=== PATIENT | female | born 1950 | race Caucasian/White ===

== ENCOUNTER → 2017-11-20 14:37 | Outpatient (CLI) | payer MEDICARE, OTHER, SELFPAY ==
--- NOTE | 2017-11-20 14:40 | HPBI_ITS ---
MAMMOGRAPHY - BILATERAL SCREENING REASON FOR EXAM: Female, 67 years old. Routine annual screening examination. PERTINENT HISTORY: Mother with breast cancer. TECHNIQUE: Digital bilateral breast radha (3D mammographic acquisition) in the CC and MLO projections. 2-D mediolateral oblique (MLO) and craniocaudad (CC) views of both breasts were obtained. CAD: Full Field Digital Mammography with Computer Added Detection was performed. COMPARISON: Comparison is made with prior study dated September 30, 2016 and August 13, 2015. FINDINGS: Breast Composition: The breasts are extremely dense, which lowers the sensitivity of mammography. There are no dominant masses or suspicious calcifications. No other significant abnormalities are identified. There has been no significant change since the prior study. HPBI/SCREENING MAMM (CAD), BILAT IMPRESSION: Stable bilateral screening mammogram. Yearly follow-up mammogram recommended. (A) ASSESSMENT CATEGORY: BIRADS Category 1: Negative. A letter regarding these results will be sent to the patient by the facility within 30 days. Approximately 10% of breast cancers are not detected by mammography. A normal mammogram should not delay biopsy of a clinically suspicious abnormality. [id number] Electronically Signed: Aamir Klein MD at 16:06 EST Tel [phone], Service support ,
== END ==
PROVIDERS: Family Provider Family Medicine; PCP Family Medicine; Visit Provider Family Medicine
DX: Z12.31 Encounter for screening mammogram for malignant neoplasm of breast (principal)
CPT/HCPCS: 77063; 77067

== ENCOUNTER → 2018-12-18 15:16 | Outpatient (CLI) | payer MEDICARE, OTHER, SELFPAY ==
[2018-10-31 16:58] VITALS: BMI 25.0
--- NOTE | 2018-12-18 15:21 | BI_ITS ---
MAMMOGRAPHY - BILATERAL SCREENING REASON FOR EXAM: Female, 68 years old. Routine annual screening examination. PERTINENT HISTORY: Mother with breast cancer. TECHNIQUE: Digital bilateral breast radha (3D mammographic acquisition) in the CC and MLO projections. 2-D mediolateral oblique (MLO) and craniocaudad (CC) views of both breasts were obtained. CAD: Full Field Digital Mammography with Computer Added Detection was performed. COMPARISON: Comparison is made with prior study dated November 20, 2017 and September 30, 2016. FINDINGS: Breast Composition: The breasts are extremely dense, which lowers the sensitivity of mammography. There are no dominant masses or suspicious calcifications. Stable small bilateral axillary lymph nodes. No other significant abnormalities are identified. There has been no significant change since the prior study. BI/SCREENING MAMM (CAD), BILAT IMPRESSION: Stable bilateral screening mammogram. Yearly follow-up mammogram recommended. (A) ASSESSMENT CATEGORY: BIRADS Category 2: Benign. A letter regarding these results will be sent to the patient by the facility within 30 days. Approximately 10% of breast cancers are not detected by mammography. A normal mammogram should not delay biopsy of a clinically suspicious abnormality. [id number] Electronically Signed: Aamir Klein, at 9:37 EST , Service support ,
== END ==
PROVIDERS: Family Provider Family Medicine; PCP Family Medicine; Visit Provider Family Medicine
DX: Z12.31 Encounter for screening mammogram for malignant neoplasm of breast (principal); Z80.3 Family history of malignant neoplasm of breast
CPT/HCPCS: 77063; 77067

== ENCOUNTER 2019-03-20 10:00 | Outpatient (RCR) | payer SELFPAY ==
--- NOTE | 2019-04-11 08:53 | HP.PT.NRP ---
HP - Discharge Summary (1) - Patient Information OSBALDO VAIL was seen in my office for initial evaluation on . The following Plan of Care was established for this patient: This patient was last seen in our office 03/20/19. Pertinent comments regarding their Physical therapy will appear below: Pt. was seen for her UT, neck, scapular painw ith DN. Pt. progressed very well and is only having minimal symptoms now. Pt. was to follow up with PT if needed. Pt. has not been seen in ~ 1 month and will be DC from PT at this point intime. At this point I will be discontinuing this patient from physical therapy. I would be happy to see this patient again in the future if found appropriate by the physician. Thank you! DOUGLAS MarquesT
== END 2019-03-20 19:00 | disposition home or self-care (01) ==
LOC: PT 10:00
PROVIDERS: Family Provider Family Medicine; PCP Family Medicine
DX: R69 Illness, unspecified (principal)

== ENCOUNTER → 2019-12-12 08:11 | Outpatient (CLI) | payer MEDICARE, OTHER, SELFPAY ==
[2018-10-31 16:58] VITALS: BMI 25.0
[2019-12-12 10:10] LABS: Vitamin D,25 Hydroxy 23.7 ng/mL
[2019-12-12 10:22] LABS: Anion Gap 4 (5-15); BUN 15 mg/dL (7-18); BUN/Creat Ratio 17.7 RATIO (10-20); Calcium,Total 8.9 mg/dL (8.5-10.1); Chloride 108 mmol/L (98-107); Cholesterol 211 mg/dL (200); Creatinine, Serum 0.85 mg/dL (0.55-1.02); EST Glomerular Filtration Rate 71 mL/min (>60); Est Glom Filt Rate - Afr Amer 86 mL/min (>60); Glucose 89 mg/dL (74-106); High Density Lipoprotein 68 mg/dL; Potassium 4.3 mmol/L (3.5-5.1); Sodium Level 140 mmol/L (136-145); Thyroid Stim Hormone (TSH) 1.82 uIU/mL (0.358-3.74); Triglycerides 102 mg/dL; Very Low Density Lipoprotein 20 mg/dL (5-40)
== END ==
PROVIDERS: PCP Family Medicine; Referring Provider Family Medicine; Visit Provider Family Medicine
DX: I10 Essential (primary) hypertension (principal); Z13.21 Encounter for screening for nutritional disorder
CPT/HCPCS: 36415; 80048; 80061; 82306; 84443

== ENCOUNTER 2019-12-27 16:30 | Outpatient (RCR) | payer SELFPAY ==
[2018-10-31 16:58] VITALS: BMI 25.0
== END 2019-12-27 17:00 | disposition home or self-care (01) ==
LOC: PT 16:30
PROVIDERS: Family Provider Family Medicine; PCP Family Medicine
DX: R69 Illness, unspecified (principal)

== ENCOUNTER → 2019-12-30 11:40 | Outpatient (CLI) | payer MEDICARE, OTHER, SELFPAY ==
[2018-10-31 16:58] VITALS: BMI 25.0
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
== END ==
PROVIDERS: PCP Family Medicine; Referring Provider Family Medicine; Visit Provider Family Medicine
DX: R22.41 Localized swelling, mass and lump, right lower limb (principal)
CPT/HCPCS: 76882

== ENCOUNTER → 2019-12-31 10:26 | Outpatient (CLI) | payer MEDICARE, OTHER, SELFPAY ==
[2018-10-31 16:58] VITALS: BMI 25.0
--- NOTE | 2019-12-31 10:31 | BI_ITS ---
MAMMOGRAPHY - BILATERAL SCREENING REASON FOR EXAM: Female, 69 years old. Routine annual screening examination. PERTINENT HISTORY: Mother with breast cancer. TECHNIQUE: Digital bilateral breast ej (3D mammographic acquisition) in the CC and MLO projections. 2-D mediolateral oblique (MLO) and craniocaudad (CC) views of both breasts were obtained. CAD: Full Field Digital Mammography with Computer Added Detection was performed. COMPARISON: Comparison is made with prior examination dated December 18, 2018 and November 20, 2017. FINDINGS: Breast Composition: The breasts are extremely dense, which lowers the sensitivity of mammography. There are no dominant masses or suspicious calcifications. Stable benign-appearing bilateral axillary lymph nodes. No other significant abnormalities are identified. There has been no significant change since the prior study. BI/SCREEN MAMM (CAD) W/EJ BILAT IMPRESSION: Stable bilateral screening mammogram. Yearly follow-up mammogram recommended. (A) ASSESSMENT CATEGORY: BIRADS Category 2: Benign. A letter regarding these results will be sent to the patient by the facility within 30 days. Approximately 10% of breast cancers are not detected by mammography. A normal mammogram should not delay biopsy of a clinically suspicious abnormality. [id number] Electronically Signed: Aamir Klein, at 14:18 EDT , Service support ,
--- NOTE | 2019-12-31 10:32 | BD_ITS ---
STUDY: DUAL ENERGY X-RAY ABSORPTIOMETRY / DXA REASON FOR EXAM: Female, 69 years old. SURGICAL RESIDENT -- TAKES CALCIUM, MULTIVITAMIN AND VITAMIN D -- DOES HIGH AMOUNT OF EXERCISE -- NO [place] TECHNIQUE: Bone Mineral Density (BMD) measurements of lumbar spine and bilateral hips were obtained. COMPARISON: Comparison is made with prior study dated December 10, 2019. FINDINGS: Lumbar Spine (L1-L4): g/cm2 (1.397) / T-score (1.6) / Z-score (3.3) Findings are suggestive of normal bone density with a low fracture risk. Left Femur Total: g/cm2 (0.787) / T-score (-1.8) / Z-score (-0.4) Left Femoral Neck: g/cm2 (0.755) / T-score (-2.0) / Z-score (-0.4) Right Femur Total: g/cm2 (0.802) / T-score (-1.6) / Z-score (-0.2) Right Femoral Neck: g/cm2 (0.750) / T-score (-2.1) / Z-score (-0.4) The T-Scores on the most recent prior examination were: Lumbar Spine (L1-L4): There has been worsening of bone density since the previous examination. Left Femur Total: which represents a worsening of 5%. Right Femur Total: which represents a worsening of 6.3%. BD/Dexa Bone Density Study IMPRESSION: The patient is considered osteopenic as outlined below according to World [place] Organization (WHO) criteria with a moderate fracture risk. There has been worsening of bone density since the previous examination. Reference Information: The T-score is the number of standard deviations above or below the standard which is normal for young adults at their peak bone mineral density. The World Health Organization (WHO) interprets the T-scores as follows: Above -1 Normal bone density Between -1 and -2.5 Osteopenia Equal to / or below -2.5 Osteoporosis As a practical clinical guideline, osteopenia may be graded as follows: Mild -1 through -1.5 Moderate -1.6 through -2.0 Severe -2.1 through -2.4 The Z-score is the number of standard deviations above or below age-matched controls. A Z-score of less than -1.5 would be considered abnormal. References: 1. NIH Osteoporosis and Related Bone Diseases http://www.osteo.org 2. International Society for Clinical Densitometry http://www.iscd.org 3. National Osteoporosis Foundation http://www.nof.org Electronically Signed: Aamir Klein, at 11:18 EDT , Service support ,
== END ==
PROVIDERS: PCP Family Medicine; Referring Provider Family Medicine; Visit Provider Family Medicine
DX: Z12.31 Encounter for screening mammogram for malignant neoplasm of breast (principal); Z78.0 Asymptomatic menopausal state
CPT/HCPCS: 77063; 77067; 77080

== ENCOUNTER 2020-12-02 08:24 | Outpatient (RCR) | payer MEDICARE, OTHER, SELFPAY ==
[2018-10-31 16:58] VITALS: BMI 25.0
== END 2020-12-02 23:59 ==
LOC: IMMUN 08:24
PROVIDERS: PCP Family Medicine; Visit Provider Family Medicine
DX: Z23 Encounter for immunization (principal)
CPT/HCPCS: 0011A; 0012A

== ENCOUNTER → 2021-09-20 15:13 | Outpatient (CLI) | payer MEDICARE, OTHER, SELFPAY ==
--- NOTE | 2021-09-20 15:18 | BI_ITS ---
MAMMOGRAPHY - BILATERAL SCREENING REASON FOR EXAM: Female, 71 years old. Routine annual screening examination. PERTINENT HISTORY: Mother with breast cancer. TECHNIQUE: Digital bilateral breast ej (3D mammographic acquisition) in the CC and MLO projections. 2-D mediolateral oblique (MLO) and craniocaudad (CC) views of both breasts were obtained. CAD: Full Field Digital Mammography with Computer Added Detection was performed. COMPARISON: Comparison is made with prior study of 12/31/2019 and 12/18/2018. FINDINGS: Breast Composition: The breasts are extremely dense, which lowers the sensitivity of mammography. There are no dominant masses or suspicious calcifications. No other significant abnormalities are identified. There has been no significant change since the prior study. BI/SCRN MAMM (CAD)W/EJ BILAT IMPRESSION: Stable bilateral screening mammogram. Yearly follow-up mammogram recommended. (A) ASSESSMENT CATEGORY: BIRADS Category 1: Negative. A letter regarding these results will be sent to the patient by the facility within 30 days. Approximately 10% of breast cancers are not detected by mammography. A normal mammogram should not delay biopsy of a clinically suspicious abnormality. [id number] Electronically Signed: Aamir Klein MD at 8:14 EST , Service support ,
== END ==
PROVIDERS: PCP Family Medicine; Visit Provider Family Medicine
DX: Z12.31 Encounter for screening mammogram for malignant neoplasm of breast (principal); Z80.3 Family history of malignant neoplasm of breast
CPT/HCPCS: 77063; 77067

== ENCOUNTER 2022-01-04 15:11 | Outpatient (CLI) | payer MEDICARE, OTHER, SELFPAY ==
--- NOTE | 2022-01-04 15:21 | BD_ITS ---
STUDY: DUAL ENERGY X-RAY ABSORPTIOMETRY / DXA REASON FOR EXAM: Female, 71 years old. [id number]. Patient is postmenopausal. TECHNIQUE: Bone Mineral Density (BMD) measurements of lumbar spine and bilateral hips were obtained. COMPARISON: Comparison is made with prior study dated 12/31/2019. FINDINGS: Lumbar Spine (L1-L4): g/cm2 (0.918) / T-score (-0.9) / Z-score (1.2) Findings are suggestive of normal bone density with a low fracture risk. Left Femur Total: g/cm2 (0.722) / T-score (-1.8) / Z-score (-0.3) Left Femoral Neck: g/cm2 (0.558) / T-score (-2.6) / Z-score (-0.8) Right Femur Total: g/cm2 (0.732) / T-score (-1.7) / Z-score (-0.2) Right Femoral Neck: g/cm2 (0.609) / T-score (-2.2) / Z-score (-0.3) The T-Scores on the most recent prior examination were: Lumbar Spine (L1-L4): There has been worsening of bone density since the previous examination. Left Femur Total: which represents a worsening of 0.7%. Right Femur Total: which represents a worsening of 1.2%. BD/Dexa Bone Density Study IMPRESSION: The patient is considered osteoporotic as outlined below according to World [place] Organization (WHO) criteria with a high fracture risk. There has been worsening of bone density since the previous examination. Reference Information: The T-score is the number of standard deviations above or below the standard which is normal for young adults at their peak bone mineral density. The World Health Organization (WHO) interprets the T-scores as follows: Above -1 Normal bone density Between -1 and -2.5 Osteopenia Equal to / or below -2.5 Osteoporosis As a practical clinical guideline, osteopenia may be graded as follows: Mild -1 through -1.5 Moderate -1.6 through -2.0 Severe -2.1 through -2.4 The Z-score is the number of standard deviations above or below age-matched controls. A Z-score of less than -1.5 would be considered abnormal. References: 1. NIH Osteoporosis and Related Bone Diseases www osteo.org 2. International Society for Clinical Densitometry www iscd.org 3. National Osteoporosis Foundation www nof.org Electronically Signed: Aamir Klein MD at 9:49 EDT ,
== END 2022-01-04 23:59 | disposition home or self-care (01) ==
LOC: OPBD 15:12
PROVIDERS: PCP Family Medicine; Visit Provider Family Medicine
DX: Z00.00 Encounter for general adult medical examination without abnormal findings (principal); Z78.0 Asymptomatic menopausal state
CPT/HCPCS: 77080

== ENCOUNTER 2022-01-11 14:49 | Outpatient (CLI) | payer MEDICARE, OTHER, SELFPAY ==
[2022-01-11 18:01] LABS: Anion Gap 4 (5-15); BUN 19 mg/dL (7-18); BUN/Creat Ratio 22.1 RATIO (10-20); Calcium,Total 9.1 mg/dL (8.5-10.1); Chloride 108 mmol/L (98-107); Creatinine, Serum 0.86 mg/dL (0.55-1.02); EST Glomerular Filtration Rate 69 mL/min (>60); Est Glom Filt Rate - Afr Amer 84 mL/min (>60); Glucose 114 mg/dL (74-106); Magnesium 2.2 mg/dL (1.6-2.6); Phosphorus 3.8 mg/dL (2.5-4.9); Potassium 4.3 mmol/L (3.5-5.1); Sodium Level 139 mmol/L (136-145)
[2022-01-12 08:35] LABS: PTHIN 41.2 pg/mL (18.4-80.1)
== END 2022-01-11 23:59 | disposition home or self-care (01) ==
LOC: MFPLAB 14:53
PROVIDERS: PCP Family Medicine; Referring Provider Family Medicine; Visit Provider Family Medicine
DX: M81.0 Age-related osteoporosis without current pathological fracture (principal)
CPT/HCPCS: 36415; 80048; 82330; 83735; 83970; 84100

== ENCOUNTER 2022-01-20 15:54 | Outpatient (CLI) | payer MEDICARE, OTHER, SELFPAY ==
[2022-01-20 17:45] LABS: Vitamin D,25 Hydroxy 48.4 ng/mL
== END 2022-01-20 23:59 | disposition home or self-care (01) ==
LOC: MFPLAB 15:58
PROVIDERS: PCP Family Medicine; Referring Provider Family Medicine; Visit Provider Family Medicine
DX: M81.0 Age-related osteoporosis without current pathological fracture (principal)
CPT/HCPCS: 36415; 82306

== ENCOUNTER → 2022-06-02 | Outpatient (CLI) | payer MEDICARE, OTHER, SELFPAY ==
--- NOTE | 2022-06-02 15:27 | MRI_ITS ---
STUDY: MRI LEFT HIP REASON FOR EXAM: Pain in the left hip/gluteal region. TECHNIQUE: Standardized fat and water weighted pulse sequences were obtained in all 3 orthogonal planes. COMPARISON: None. FINDINGS: Normal hip joint without articular joint space narrowing. Normal acetabulum. There is a tear of the anterosuperior labrum (proton-density sagittal image 18). Normal femoral head. Normal femoral neck and intratrochanteric region. Normal gluteus minimus, medius and iliopsoas tendons and distal insertions. There is no trochanteric, iliopsoas or iliopectineal bursitis. Normal superior and inferior pubic rami. Normal pubic symphysis. Normal ischial tuberosity. There is a low-grade partial tear of the origin of the left conjoint tendon (proton-density axial images 30-32). Normal visualized iliac wing, sacroiliac joint, and sacral ala. The piriformis muscles are bilaterally symmetric in size and signal intensity. MRI/Lower Ext Joint Only (Routine) IMPRESSION: Left anterosuperior labral tear. Low-grade partial tear of the origin of the left conjoint tendon. No demonstrated left gluteal tendon pathology or abnormality of the piriformis muscles. Electronically Signed: Forest Diop MD at 16:55 EDT ,
== END | disposition home or self-care (01) ==
LOC: MRI 15:17
PROVIDERS: PCP Family Medicine; Visit Provider Family Medicine
DX: M25.552 Pain in left hip (principal)
CPT/HCPCS: 73721

== ENCOUNTER 2022-07-20 15:30 | Outpatient (RCR) | payer MEDICARE, OTHER, SELFPAY ==
--- NOTE | 2022-02-23 07:08 | HP.PTEVAL ---
Patient's Visit Information OSBALDO VAIL is a 71 year old F referred to Physical Therapy by Dr. Ralph Mclean MD with a diagnosis of L piriformis syndrome. Date of Evaluation: 02/22/22 Physical Therapist: Dagoberto Briggs DPT - Visit Plan Frequency: 2x /Week Duration: 4 Weeks Plan: Start with hip ER stretching, DFM to piriformis with mobilization, DN to same region. Progress as tolerated. Add in strengthening to glutes and hip ER/IR. - Subjective Pt. is here today for here initial evaluation with diagnosis of L piriformis pain. Pt. reports in October bending over to put her boots on and felt a pain in her glute. She has been having intermittent pain since. She is currently taking prednisone, just started. She has been having some relief with ibuprophen as well. Increases pain: bending, squatting, throwing hip to R side. Pt. reports last 2 weeks have been a bit worse. Pt. is to see physician if needed. No MRI at this point in time. Pt. 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 She reports having relief with deep tissue massage, but did come back after a few weeks. Pt. is sleeping well without issues. Pt. is still working, and doing recreational exercises, but has had to back off and avoid certain activities. She denies back pain and no pain radiating further down her leg. pt. is hopeful to reduce symptoms in order to get back to all activities without limitations. - Pain L side gluteal region Pain Intensity (Out of 10): 2 Pain Intensity Range: 9 Comment: burning - Objective POSTURE: Pt. has pretty decent posture in stance. Normal lumbo pelvic positioning, no lateral wt. shifting noted. PALPATION: Pt. has no issues with spring testing throughout lumbar and sacrum. She did have some hypomobility noted, but nothing major and noting causing symptoms. She was however very tender along piriformis muscle belly and high levels of symptoms at piriformis insertion near greater trochanter. No pain at upper portion of gluteal muscles. No IT band or TFL pain noted. NEURO: normal response to light and sharp touch, normal DTR of BLEs. ROM: Pt. has good lumbar ROM, slight tightness in L hip with L side bend. She has good L hip ROM without increase in symptoms. She did have a pulling sensation with hip ER and adduction motion. MMT: Pt. had good strength throughout BLEs no pain noted. Except L hip abd 4+/5, and L hip ER 4+/5. GAIT: Pt. has good gait pattern without lateral deviation or antalgic pattern. - Special Tests Lumbar Standing: Flexion - Mechanical Response: No effect Lumbar Standing: Flexion - Symptoms During Testing: No effect Lumbar Standing: Flexion - Symptoms After Testing: No effect Lumbar Standing: Extension - Symptoms After Testing: No effect Lumbar Standing: Right Side Glides - Mechanical Response: No effect Lumbar Standing: Right Side [place] - Symptoms During Testing: No effect Lumbar Standing: Right Side [place] - Symptoms After Testing: No effect Lumbar Standing: Left Side [place] - Mechanical Response: No effect Lumbar Standing: Left Side [place] - Symptoms During Testing: No effect Lumbar Standing: Left Side [place] - Symptoms After Testing: No effect Lumbar Lying: Flexion - Mechanical Response: No effect Lumbar Lying: Flexion - Symptoms During Testing: No effect Lumbar Lying: Flexion - Symptoms After Testing: No effect Lumbar Lying: Extension - Mechanical Response: No effect Lumbar Lying: Extension - Symptoms During Testing: No effect Lumbar Lying: Extension - Symptoms After Testing: No effect L Hip Scour: Negative L Hip Quadrant - Intraarticular Pathology: Negative L Hip JIMMY - Intraarticular Pathology: Negative L Hip FADDIR - Labrum: Negative L Hip Roly - IT Band: Negative - Balance/Special Test Scores Lower Extremity Functional Score: 68 - Goals Goal 1:: LTG: Pt. to be I with HEP for L hip strengthening and ROM. Goal Time Frame: 4-6 Weeks Goal 2:: STG: Pt. to have decreased symptoms with all walking and transitional movements, ie. squatting, sit to stand. Goal Time Frame: 2-4 Weeks Goal 3:: LTG: Pt. to complete all work and recreational activities without increase in LLE pain. Goal Time Frame: 4-6 Weeks Goal 4:: STG: Pt. to sleep without increase in symptoms. Goal Time Frame: 2-4 Weeks Goal 5:: LTG Pt. to have increased hip ER and hip abd to 5/5 throughout LLE. Goal Time Frame: 4-6 Weeks - Rehabilitation Potential Physical Therapy Diagnosis: Pt. has signs and symptoms consistent with L piriformis syndrome. Pt. had no evidence suggesting radiating LBP or L hip OA. She was point tender at piriformis muscle belly. Pt. would benefit from PT to address her piriformis pain and increase tolerance to all functional mobility. Rehabilitation Potential: Excellent - Anticipated Interventions Patient/Client Instruction: Educate patient on: Condition, Plan of Care, Risk Factors, Benefits of Fitness Program For the Purpose of:: To improve decision making, To facilitate caregiver knowledge, To improve self management, To prevent re-injury, To improve ability to perform tasks related to life management Therapeutic Exercise to Include: Strength training, Power training, Body mechanics, Postural training, Passive ROM, Active ROM, Dynamic Lumbar Stabilization For the Purpose of:: To decrease pain, To decrease swelling/inflammation, To increase ROM, To improve nutrient delivery to tissue, To increase oxygenation perfusion, To improve muscle performance and motor function, To improve ability to perform ADL's, To decrease soft tissue restriction, To increase flexibility/ROM Manual Therapy Techniques to Include: Mobilization, Functional dry needling, Soft tissue mobilization For the Purpose of:: To decrease pain, To increase ROM, To improve nutrient delivery to tissue, To improve muscle performance and motor function Thank you for the opportunity to evaluate your patient. For Medicare and Medicare HMO plans, please review the plan of care and approve it. It will need to be FAXED BACK to us at [phone] for Medicare purposes. For Medicare only, by signing this I certify the plan of care. Please let me know if there are questions or concerns regarding this plan of care. Physician Signature: Date:
--- NOTE | 2022-05-16 12:00 | HP.PTREVAL ---
Dr. Ralph Mclean MD, It has been my pleasure to treat OSBALDO VAIL over the last 12 visits for L piriformis syndrome. Please see the progress note below for an update on the physical therapy plan of care! Subjective: Pt. reports having increased symptoms. Pt. is still having pain with bending over, but not all the time. Pt. reports having increased pain with returning from flexed postures and occasional with stepping down off a curb onto her L side. No pain walking in, but can reproduce it with flexing and returning to neutral. Objective/Function: ROM: LUMBAR SPINE: full without increase in symptoms. Normal L hip ROM without increase in symptoms. She did report having mild increase in symptoms with bending over, but more of the return of being flexed. Pt. is point tender at upper L gluteal region. Superior to piriformis region on L side. negative with spring testing of lumbar spine. Mild hypomobility noted. -slump testing, - SLR testing, no lumbar directional preference noted. I do not think that her back is the problem, It does appear to be more muscular, but I am leaning towards a glute Medius injury. I am only able to reproduice symptoms with firm palpation and with returning from flexed postures, it grabs. Plan Plan: I suggested to her about contacting her physician about her symptoms. She reports being better overall, but seems to have plateaued at this point in time. Pt. She is able to do most things, but is not fully better. Balance/Gait/Functional tests - Balance/Special Test Scores Lower Extremity Functional Score: 75 Goals Goal 1:: LTG: Pt. to be I with HEP for L hip strengthening and ROM. Goal Time Frame: 4-6 Weeks Goal Progress: Goal Met Goal 2:: STG: Pt. to have decreased symptoms with all walking and transitional movements, ie. squatting, sit to stand. Goal Time Frame: 2-4 Weeks Goal Progress: Goal Met Goal 3:: LTG: Pt. to complete all work and recreational activities without increase in LLE pain. Goal Time Frame: 4-6 Weeks Goal Progress: Progressing Goal 4:: STG: Pt. to sleep without increase in symptoms. Goal Time Frame: 2-4 Weeks Goal Progress: Goal Met Goal 5:: LTG Pt. to have increased hip ER and hip abd to 5/5 throughout LLE. Goal Time Frame: 4-6 Weeks Goal Progress: Progressing Anticipated Interventions Patient/Client Instruction: Educate patient on: Condition, Plan of Care, Risk Factors, Benefits of Fitness Program For the Purpose of:: To improve decision making, To facilitate caregiver knowledge, To improve self management, To prevent re-injury, To improve ability to perform tasks related to life management Therapeutic Exercise to Include: Strength training, Power training, Body mechanics, Postural training, Passive ROM, Active ROM, Dynamic Lumbar Stabilization For the Purpose of:: To decrease pain, To decrease swelling/inflammation, To increase ROM, To improve nutrient delivery to tissue, To increase oxygenation perfusion, To improve muscle performance and motor function, To improve ability to perform ADL's, To decrease soft tissue restriction, To increase flexibility/ROM Manual Therapy Techniques to Include: Mobilization, Functional dry needling, Soft tissue mobilization For the Purpose of:: To decrease pain, To increase ROM, To improve nutrient delivery to tissue, To improve muscle performance and motor function Please do not hesitate to contact me at [phone] by phone or if you have questions or concerns regarding this new plan of care! Sincerely, Dagoberto Briggs DPT
--- NOTE | 2022-06-08 16:17 | HP.PTREVAL ---
Dr. Ralph Mclean MD, It has been my pleasure to treat OSBALDO VAIL over the last 13 visits for L piriformis syndrome. Please see the progress note below for an update on the physical therapy plan of care! Subjective: Pt. comes into PT this date. 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 Pt. met with her physician and they decided to work on further strengthening in order to stave the need for any surgical intervention. She is overall doing well, but is still having some pain at posterior hip. She is not having much groin pain. She is getting back to all gym exercises, but is slowly progressing. Objective/Function: - FADDIR, - JIMMY. She is tender at posterior/lateral greater trochanter. Not much pain with end range extension or end range flexion as well. MMT: LLE: ankle/knee 5/5 throughout. L hip: flexion 5-/5, abd 4+/5 mild increase NW, ext 5-/5 mild increase NW, flexion 5/5 NE, ER 4/5 NE, IR 4/5. Core strength fair. GAIT: normal gait pattern noted. Plan Plan: I want to work on L hip/core strengthening. Focus on hip ER/IR stability, glute strengthening and progress hip abductor strengthening/stability. Add in QL/core stability as well. I want her to continue with her strengthening with her personal computer specialist and add in my hip/core exercises as well. I will see her x1 per week for a month with progression of HEP each visit to complete to following week. Balance/Gait/Functional tests - Balance/Special Test Scores Lower Extremity Functional Score: 75 Goals Goal 1:: LTG: Pt. to be I with HEP for L hip strengthening and ROM. Goal Time Frame: 4-6 Weeks Goal Progress: Goal Met Goal 2:: STG: Pt. to have decreased symptoms with all walking and transitional movements, ie. squatting, sit to stand. Goal Time Frame: 2-4 Weeks Goal Progress: Goal Met Goal 3:: LTG: Pt. to complete all work and recreational activities without increase in LLE pain. Goal Time Frame: 4-6 Weeks Goal Progress: Progressing Goal 4:: STG: Pt. to sleep without increase in symptoms. Goal Time Frame: 2-4 Weeks Goal Progress: Goal Met Goal 5:: LTG Pt. to have increased hip ER and hip abd to 5/5 throughout LLE. Goal Time Frame: 4-6 Weeks Goal Progress: Progressing Anticipated Interventions Patient/Client Instruction: Educate patient on: Condition, Plan of Care, Risk Factors, Benefits of Fitness Program For the Purpose of:: To improve decision making, To facilitate caregiver knowledge, To improve self management, To prevent re-injury, To improve ability to perform tasks related to life management Therapeutic Exercise to Include: Strength training, Power training, Body mechanics, Postural training, Passive ROM, Active ROM, Dynamic Lumbar Stabilization For the Purpose of:: To decrease pain, To decrease swelling/inflammation, To increase ROM, To improve nutrient delivery to tissue, To increase oxygenation perfusion, To improve muscle performance and motor function, To improve ability to perform ADL's, To decrease soft tissue restriction, To increase flexibility/ROM Manual Therapy Techniques to Include: Mobilization, Functional dry needling, Soft tissue mobilization For the Purpose of:: To decrease pain, To increase ROM, To improve nutrient delivery to tissue, To improve muscle performance and motor function Please do not hesitate to contact me at [phone] by phone or if you have questions or concerns regarding this new plan of care! Sincerely, Dagoberto Briggs DPT
== END 2022-07-20 19:00 | disposition home or self-care (01) ==
LOC: PT 15:30
PROVIDERS: PCP Family Medicine; Referring Provider Family Medicine; Visit Provider Family Medicine
DX: G57.02 Lesion of sciatic nerve, left lower limb (principal)
CPT/HCPCS: 97035; 97110; 97140; 97161; 97164

== ENCOUNTER → 2022-09-26 | Outpatient (CLI) | payer MEDICARE, OTHER, SELFPAY ==
--- NOTE | 2022-09-26 15:47 | BI_ITS ---
MAMMOGRAPHY - BILATERAL SCREENING REASON FOR EXAM: Female, 72 years old. Routine annual screening examination. PERTINENT HISTORY: Mother with breast cancer. TECHNIQUE: Digital bilateral breast radha (3D mammographic acquisition) in the CC and MLO projections. 2-D mediolateral oblique (MLO) and craniocaudad (CC) views of both breasts were obtained. CAD: Full Field Digital Mammography with Computer Added Detection was performed. COMPARISON: Comparison is made with prior examination dated 09/20/2021 and 12/31/2019. FINDINGS: Breast Composition: The breasts are extremely dense, which lowers the sensitivity of mammography. There are no dominant masses or suspicious calcifications. No other significant abnormalities are identified. There has been no significant change since the prior study. BI/SCREENING MAMM (CAD), BILAT IMPRESSION: Stable bilateral screening mammogram. Yearly follow-up mammogram recommended. (A) ASSESSMENT CATEGORY: BIRADS Category 1: Negative. A letter regarding these results will be sent to the patient by the facility within 30 days. Approximately 10% of breast cancers are not detected by mammography. A normal mammogram should not delay biopsy of a clinically suspicious abnormality. [id number] Electronically Signed: Aamir Klein MD at 8:36 EST ,
== END | disposition home or self-care (01) ==
LOC: OPBI 15:46
PROVIDERS: PCP Family Medicine; Visit Provider Family Medicine
DX: Z12.31 Encounter for screening mammogram for malignant neoplasm of breast (principal); Z80.3 Family history of malignant neoplasm of breast
CPT/HCPCS: 77067

== ENCOUNTER → 2022-11-04 | Outpatient (CLI) | payer MEDICARE, OTHER, SELFPAY ==
[2022-11-04 07:38] LABS: Anion Gap 10 (5-15); BUN 23 mg/dL (7-18); BUN/Creat Ratio 27.6 RATIO (10-20); Calcium,Total 9.1 mg/dL (8.5-10.1); Chloride 108 mmol/L (98-107); Cholesterol 200 mg/dL (200); Creatinine, Serum 0.83 mg/dL (0.55-1.02); EST Glomerular Filtration Rate 72 mL/min (>60); Est Glom Filt Rate - Afr Amer 87 mL/min (>60); Glucose 85 mg/dL (74-106); High Density Lipoprotein 68 mg/dL; Potassium 4.1 mmol/L (3.5-5.1); Sodium Level 143 mmol/L (136-145); Thyroid Stim Hormone (TSH) 2.24 uIU/mL (0.358-3.74); Triglycerides 90 mg/dL; Very Low Density Lipoprotein 18 mg/dL (5-40)
[2022-11-04 07:54] LABS: PTHIN 47.1 pg/mL (18.4-80.1)
[2022-11-04 07:58] LABS: Vitamin D,25 Hydroxy 50.6 ng/mL
== END | disposition home or self-care (01) ==
LOC: LAB 06:01
PROVIDERS: PCP Family Medicine; Referring Provider Family Medicine; Visit Provider Family Medicine
DX: Z00.00 Encounter for general adult medical examination without abnormal findings (principal); M81.0 Age-related osteoporosis without current pathological fracture; Z13.220 Encounter for screening for lipoid disorders
CPT/HCPCS: 36415; 80048; 80061; 82043; 82306; 82330; 83735; 83970; 84443

== ENCOUNTER 2023-08-14 16:00 | Outpatient (RCR) | payer MEDICARE, OTHER, SELFPAY ==
--- NOTE | 2023-07-18 08:37 | HP.PTEVAL ---
Patient's Visit Information Visit Information Visit Information: OSBALDO VAIL is a 73 year old F referred to Physical Therapy by Dr. Ralph Mclean MD with a diagnosis of L UT strain and mild thoracic scoliosis. Date of Evaluation: 07/17/23 Physical Therapist: Dagoberto Briggs DPT Visit Plan Frequency: 2x /Week Duration: 4 Weeks Plan: Start with cervical and thoracic extension. Add in L UT and levator scap stretching. DN to same region. Progress rotation of thoracic spine as well. Subjective Subjective: Pt. is here today for her initial evaluation with diagnosis of L UT strain and mild thoracic scoliosis. Pt. reports having this problem for a few years on and off. What concerned her more is it is puffy at her UT region. Pt. reports of N/T in either UE. Pt. reports having soreness in her UT region as well. Pt. has increased pain with some of her over head exercises and with rotation of her thoracic spine at times. Pt. is able to do most activities with mild limitations. Pt. has had xrays which overall look good. Pt. is hopeful to reduce symptoms in order to get back to all work and recreational activities without limitations. Pain L UT region: Pain Intensity (Out of 10): 2 Pain Intensity Range: 0 and 4 L mid thoracic region: Pain Intensity (Out of 10): 2 Pain Intensity Range: 0 and 4 Objective Objective: POSTURE: Pt. has decent posture in stance. Slight increased swelling puffiness at L UT region. Shoulder height appears to be equal. Maybe a slightly elevated L scapula. Slgiht FH posture. PALAPTION: Pt. has pain along L UT, L levator scap and L medial boarder of the scapula. NEURO: Pt. has normal sensation in BUEs. ROM: Pt. has closed to full cervical ROM, slight reduction in SB R with reports of tightness, Slight loss in extension. Normal shoulder ROM noted without issues. Pt. has slight loss in thoracic extension and rotation to the R. MMT: PT. has full 5/5 strength in BUEs. Special Tests C/S Radiculapathy - Left Upper limb tension test: Negative C/S Radiculapathy - Right Upper limb tension test: Negative C/S Radiculapathy - Left Spurlings: Negative C/S Radiculapathy - Right Spurlings: Negative C/S Radiculapathy - Left Cervical distraction: Negative C/S Radiculapathy - Right Cervical distraction: Negative C/S Radiculapathy - Left Relief test: Negative C/S Radiculapathy - Right Relief test: Negative C/S Radiculapathy - Valsalva: Negative Thoracic Sitting: Flexion - Mechanical Response: No effect Thoracic Sitting: Flexion - Symptoms During Testing: No effect Thoracic Sitting: Flexion - Symptoms After Testing: No effect Thoracic Sitting: Extension - Mechanical Response: No effect Thoracic Sitting: Extension - Symptoms During Testing: No effect Thoracic Sitting: Extension - Symptoms After Testing: No effect Thoracic Sitting: Right rotation - Mechanical Response: No effect Thoracic Sitting: Right Rotation - Symptoms During Testing: Increases Thoracic Sitting: Right Rotation - Symptoms After Testing: No worse Thoracic Sitting: Left rotation - Mechanical Response: No effect Thoracic Sitting: Left Rotation - Symptoms During Testing: No effect Thoracic Sitting: Left Rotation - Symptoms After Testing: No effect Balance/Special Test Scores Oswestry Neck Score: 3 Goals Goal 1:: LTG: Pt. to be I with HEP. Goal 2:: LTG: PT. to have decreased appearance of L UT swelling, symmetrical to R side. Goal Time Frame: 4-6 Weeks Goal 3:: STG: Pt. to have full cervical and thoracic mobility without increase in symptoms. Goal Time Frame: 2-4 Weeks Goal 4:: LTG: pt. to complete all work and recreational activities without increase in symptoms. Goal Time Frame: 4-6 Weeks Rehabilitation Potential Physical Therapy Diagnosis: Pt. has signs and symptoms consistent with L UT strain and mild thoracic scoliosis. Pt. has some loss of thoracic extension and rotation to R. tightness with cervical SB to R and extension. She also has some increased muscle tension at her L UT and L mid trap region. I am not sure why there is the increased puffiness or swelling at her L UT region, but there is some increased muscle tension in this region. I would like to work on some thoracic and cervical mobility as well as inhibition activities of her L UT to reduce her symptoms. Rehabilitation Potential: Good Anticipated Interventions Patient/Client Instruction: Educate patient on: Condition, Plan of Care, Risk Factors and Benefits of Fitness Program For the Purpose of:: To facilitate caregiver knowledge, To improve self management, To prevent re-injury, To improve ability to perform tasks related to life management and To improve tolerance to ADL's Therapeutic Exercise to Include: Strength training, Power training, Body mechanics, Postural training, Flexibilty training, Passive ROM, Active ROM, Wanda Exercises and Scapular Strength/Stabilization For the Purpose of:: To decrease pain, To increase ROM, To improve health of tissue, To decrease soft tissue restriction and To increase flexibility/ROM Manual Therapy Techniques to Include: Mobilization, Functional dry needling and Soft tissue mobilization For the Purpose of:: To decrease pain, To increase ROM, To improve nutrient delivery to tissue, To increase oxygenation perfusion and To improve muscle performance and motor function Text: Thank you for the opportunity to evaluate your patient. For Medicare and Medicare HMO plans, please review the plan of care and approve it. It will need to be FAXED BACK to us at [phone] for Medicare purposes. For Medicare only, by signing this I certify the plan of care. Please let me know if there are questions or concerns regarding this plan of care. Physician Signature: Date:
== END 2023-08-14 19:00 | disposition home or self-care (01) ==
LOC: PT 16:00
PROVIDERS: PCP Family Medicine; Visit Provider Family Medicine
DX: S29.012D Strain of muscle and tendon of back wall of thorax, subsequent encounter (principal); M41.9 Scoliosis, unspecified
CPT/HCPCS: 97110; 97161; J7030; A4216

== ENCOUNTER → 2023-10-06 | Outpatient (CLI) | payer MEDICARE, OTHER, SELFPAY ==
--- NOTE | 2023-10-06 07:18 | BI_ITS ---
MAMMOGRAPHY - BILATERAL SCREENING 3-D TOMOSYNTHESIS REASON FOR EXAM: Female, 73 years old. Screening mammogram. PERTINENT HISTORY: History of breast cancer in mother, age not identified. TECHNIQUE: 2-D mammograms and 3-D Tomosynthesis of the breast (s) were performed. CAD was performed. COMPARISON: September 20, 2021 and September 26, 2022 FINDINGS: Heterogeneously dense breast tissue which can obscure small breast masses. Scattered benign calcifications, unchanged. No dominant masses, suspicious microcalcifications, asymmetries, skin thickening or nipple retraction. Yearly screening mammogram recommended. BI/SCRN MAMM (CAD)W/EJ BILAT IMPRESSION: No mammographic signs of malignancy. Yearly bilateral mammogram recommended. ASSESSMENT CATEGORY: BIRADS Category 1: Negative. A letter regarding these results will be sent to the patient by the facility within 30 days. FOLLOW UP RECOMMENDATION: Yearly follow up mammogram recommended. (A) Approximately 10% of breast cancers are not detected by mammography. A normal mammogram should not delay biopsy of a clinically suspicious abnormality. Electronically Signed: Jerry Harry MD at 10:56 EST ,
== END | disposition home or self-care (01) ==
LOC: OPBI 07:56
PROVIDERS: PCP Family Medicine; Referring Provider Family Medicine; Visit Provider Family Medicine
DX: Z12.31 Encounter for screening mammogram for malignant neoplasm of breast (principal); Z80.3 Family history of malignant neoplasm of breast
CPT/HCPCS: 77063; 77067

== ENCOUNTER → 2024-01-11 | Outpatient (CLI) | payer MEDICARE, OTHER, SELFPAY ==
--- NOTE | 2024-01-11 15:00 | RAD_ITS ---
INDICATION: pain medially EXAMINATION/TECHNIQUE: X-RAY - RIGHT XR Knee Complete 4 Views or More 4 VIEWS COMPARISON: No relevant prior comparison study available FINDINGS: SOFT TISSUES: No soft tissue swelling or gas. No radiopaque foreign body. BONES/JOINTS: No acute fracture or subluxation.. Normal alignment. Preservation of the joint space.. No sclerotic or destructive changes observed. RAD/Knee 4 or More Views IMPRESSION: 1. No evidence fracture, malalignment or focal bony or joint space abnormality. Electronically Signed: Jose Jo MD at 23:57 EDT ,
== END | disposition home or self-care (01) ==
LOC: MTRAD 15:00
PROVIDERS: PCP Family Medicine; Referring Provider Family Medicine; Visit Provider Family Medicine
DX: M25.561 Pain in right knee (principal)
CPT/HCPCS: 73564

== ENCOUNTER 2024-02-22 15:30 | Outpatient (RCR) | payer MEDICARE, OTHER, SELFPAY ==
--- NOTE | 2024-01-17 13:11 | HP.PTEVAL ---
Patient's Visit Information Visit Information Visit Information: OSBALDO VAIL is a 73 year old F referred to Physical Therapy by Dr. Ralph Mclean MD with a diagnosis of R knee pain, pes anserine. Date of Evaluation: 01/12/24 Physical Therapist: Dagoberto Briggs DPT Visit Plan Frequency: 2x /Week Duration: 6 Weeks Plan: Start with ROM progressing towards end ranges. Add in ice vaso to calm system Progress to HS and quad stretching. Once doing better add in isometric strengthening of quads progressing to hip/core/LE strengthening as tolerated. Subjective Subjective: Pt. is here today for her initial evaluation with diagnosis of pes anserine pain of her R knee. pt. reports having pain for a few weeks now. She reports it might have occurred after doing a curtsey squat, but it was not immediate pain. Her pain started a few days later. Pt. arrives today with a limp during R stance phase. She has minimal pain at rest, but increased pain with stairs, walking. She reports that her pain has worsened since seeing physician. She did have an xray showing overall no obvious fractures and pretty good space maintained. Pt. is sleeping okay. No N/T noted in either LE. Pt. reports all of her pain is at her medial knee, pain starts at the back of her knee and wraps around. No bruising noted. No redness noted. Pt. is hopeful to reduce symptoms in order to get back to all working out and recreational activities without limitations. Pain R medial knee: Pain Intensity (Out of 10): 4 Pain Intensity Range: 2 and 8 Objective Objective: POSTURE: Pt. has decent posture in stance. Pt. has increased wt. shift to L side. Pt. is able to bear wt on her R knee, but does have increased symptoms. PALPATION: Pt. tender through medial aspect of her knee. NEURO: Normal throughout. Normal DTR and sensation. ROM: R knee: 0-0-128deg. Pt. reports some pain with end range extension and flexion. No changes in symptoms with repeated motions. MMT: RLE: ankle 5/5 throughout; knee: ext 18.4# increase NW, flexion 23.5# increase NW, hip: flexion 15.8#, abd 17.5#, ext 13.9# mild increase NW. LLE: ankle 5/5 throughout; knee: ext 26.7#, flexion 24.8#; hip: flexion 16.8#, abd 18.4#, ext 17.5#. Core strength: fair. GAIT: Pt. has antalgic pattern during R stance phase. She has marked loss of TKE during stance phase and quick stance phase as well. Reports increased pain during stance phase. STAIRS: Pt. is able to ascend and descend with use of railings, prefers step to pattern secondary to pain Balance/Special Test Scores Lower Extremity Functional Score: 48 Goals Goal 1:: LTG: Pt. to have full R knee ROM without increase in symptoms. Goal Time Frame: 4-6 Weeks Goal 2:: STG: Pt. to have normal gait pattern without increase in R knee pain. Goal Time Frame: 2-4 Weeks Goal 3:: LTG: Pt. to have symmetrical strength between BLEs allowing for safe return to all gym related activities. Goal Time Frame: 4-6 Weeks Goal 4:: LTG: Pt. to negotiate 1 flight of stairs with reciprocal pattern without increase in R knee pain. Goal Time Frame: 4-6 Weeks Rehabilitation Potential Physical Therapy Diagnosis: Pt. has signs and symptoms consistent with R knee pain. She has medial knee pain that does wrap around to the front. She thinks she hurt it doing a curtsey squat with a possible valgus movement of her R knee. No + sign of MCL issues, she was tender along medial joint line and into pes anserine region. She does have some loss of end ranges of motion with pain limiting her. She would benefit form PT to address the above limitations getting back to all recreational activities without issues. Rehabilitation Potential: Excellent Anticipated Interventions Patient/Client Instruction: Educate patient on: Condition, Plan of Care, Risk Factors and Benefits of Fitness Program For the Purpose of:: To improve safety, To improve health and function, To foster healthy habits, To improve decision making, To facilitate caregiver knowledge, To improve self management, To prevent re-injury and To improve ability to perform tasks related to life management Therapeutic Exercise to Include: Strength training, Power training, Endurance training, Balance training, Flexibilty training, Gait and locomotor training, Passive ROM and Active ROM For the Purpose of:: To decrease pain, To increase ROM, To improve gait and locomotor functions, To improve health of tissue, To decrease soft tissue restriction, To increase flexibility/ROM and To improve endurance Manual Therapy Techniques to Include: Mobilization, Passive ROM, Functional dry needling and Soft tissue mobilization For the Purpose of:: To decrease pain, To decrease swelling/inflammation, To increase ROM, To improve nutrient delivery to tissue, To increase oxygenation perfusion and To improve muscle performance and motor function Cryotherapy (ice pack, ice massage): Yes Ultrasound (thermal/non thermal): Yes For the Purpose of:: To decrease pain, To decrease swelling/inflammation and To increase ROM Text: Thank you for the opportunity to evaluate your patient. For Medicare and Medicare HMO plans, please review the plan of care and approve it. It will need to be FAXED BACK to us at [phone] for Medicare purposes. For Medicare only, by signing this I certify the plan of care. Please let me know if there are questions or concerns regarding this plan of care. Physician Signature: Date:
--- NOTE | 2024-02-26 12:59 | HP.PTREVAL ---
Re-Evaluation Intro: Dr. Darin Mclean MD, It has been my pleasure to treat OSBALDO VAIL over the last 12 visits for R knee pain, pes anserine. Please see the progress note below for an update on the physical therapy plan of care! Subjective Subjective: Pt. is to follow up with Physician next week. Pt. is feeling better, but is not fully better. Pt. reports being 1/10 pain today at just superior to medial joint line. Pt. reports being 60% better overall. Objective Objective/Function: Pt. feels like she is improving. Her ROM passively is 0-0-122deg. Pt. does have some tightness at end ranges. She continues to have distal medial HS pain with palpation, but is tolerating exercises much more. We have been doing some manual light exercises. Initially did some pool exercises with gradually progressing. She still has some pain with knee valgus positioning, but again is much better than previously. Pt. is following up with physician next week. Plan Plan Plan: Pt. to see physician next week. Balance/Gait/Functional tests Balance/Special Test Scores Lower Extremity Functional Score: 48 Goals Goals Goal 1:: LTG: Pt. to have full R knee ROM without increase in symptoms. Goal Time Frame: 4-6 Weeks Goal 2:: STG: Pt. to have normal gait pattern without increase in R knee pain. Goal Time Frame: 2-4 Weeks Goal Progress: Progressing Goal 3:: LTG: Pt. to have symmetrical strength between BLEs allowing for safe return to all gym related activities. Goal Time Frame: 4-6 Weeks Goal Progress: Progressing Goal 4:: LTG: Pt. to negotiate 1 flight of stairs with reciprocal pattern without increase in R knee pain. Goal Time Frame: 4-6 Weeks Goal Progress: Progressing Anticipated Interventions Anticipated Interventions Patient/Client Instruction: Educate patient on: Condition, Plan of Care, Risk Factors and Benefits of Fitness Program For the Purpose of:: To improve safety, To improve health and function, To foster healthy habits, To improve decision making, To facilitate caregiver knowledge, To improve self management, To prevent re-injury and To improve ability to perform tasks related to life management Therapeutic Exercise to Include: Strength training, Power training, Endurance training, Balance training, Flexibilty training, Gait and locomotor training, Passive ROM and Active ROM For the Purpose of:: To decrease pain, To increase ROM, To improve gait and locomotor functions, To improve health of tissue, To decrease soft tissue restriction, To increase flexibility/ROM and To improve endurance Manual Therapy Techniques to Include: Mobilization, Passive ROM, Functional dry needling and Soft tissue mobilization For the Purpose of:: To decrease pain, To decrease swelling/inflammation, To increase ROM, To improve nutrient delivery to tissue, To increase oxygenation perfusion and To improve muscle performance and motor function Cryotherapy (ice pack, ice massage): Yes Ultrasound (thermal/non thermal): Yes For the Purpose of:: To decrease pain, To decrease swelling/inflammation and To increase ROM Re-Evaluation Ending Re-evaluation ending: Please do not hesitate to contact me at [phone] by phone or if you have questions or concerns regarding this new plan of care! Sincerely, DOUGLAS MarquesT
== END 2024-02-22 19:00 | disposition home or self-care (01) ==
LOC: PT 15:30
PROVIDERS: PCP Family Medicine; Referring Provider Family Medicine; Visit Provider Family Medicine
DX: Q66.89 Other specified congenital deformities of feet (principal)
CPT/HCPCS: 97016; 97035; 97110; 97113; 97140; 97161

== ENCOUNTER → 2024-03-12 | Outpatient (CLI) | payer MEDICARE, OTHER, SELFPAY ==
[2024-03-12 11:11] LABS: Anion Gap 8 (5-15); BUN 16 mg/dL (7-18); Calcium,Total 9.3 mg/dL (8.5-10.1); Chloride 108 mmol/L (98-107); EST Glomerular Filtration Rate 88 mL/min (>60); Est Glom Filt Rate - Afr Amer 106 mL/min (>60); Glucose 85 mg/dL (74-106); Potassium 4.1 mmol/L (3.5-5.1); Sodium Level 140 mmol/L (136-145); Thyroid Stim Hormone (TSH) 1.57 uIU/mL (0.358-3.74)
[2024-03-12 12:09] LABS: Vitamin D,25 Hydroxy 76.6 ng/mL
== END | disposition home or self-care (01) ==
LOC: MFPLAB 09:15
PROVIDERS: PCP Family Medicine; Visit Provider Family Medicine
DX: I10 Essential (primary) hypertension (principal); M81.0 Age-related osteoporosis without current pathological fracture
CPT/HCPCS: 36415; 80048; 82306; 84443

== ENCOUNTER → 2024-08-26 | Outpatient (CLI) | payer MEDICARE, OTHER, SELFPAY ==
[2024-08-26 18:23] LABS: Anion Gap 6 (5-15); BUN 22 mg/dL (7-18); BUN/Creat Ratio 27.4 RATIO (10-20); Calcium,Total 9.2 mg/dL (8.5-10.1); Chloride 104 mmol/L (98-107); EST Glomerular Filtration Rate 74 mL/min (>60); Est Glom Filt Rate - Afr Amer 90 mL/min (>60); Glucose 83 mg/dL (74-106); Potassium 4.1 mmol/L (3.5-5.1); Sodium Level 139 mmol/L (136-145)
== END | disposition home or self-care (01) ==
LOC: MFPLAB 16:03
PROVIDERS: PCP Family Medicine; Visit Provider Family Medicine
DX: I10 Essential (primary) hypertension (principal)
CPT/HCPCS: 36415; 80048

== ENCOUNTER → 2024-10-30 | Outpatient (CLI) | payer MEDICARE, OTHER, SELFPAY ==
--- NOTE | 2024-10-30 16:45 | RAD_ITS ---
EXAM: XR RIGHT HAND COMPLETE, 3 OR MORE VIEWS CLINICAL INDICATION: 1st mcp joint pain TECHNIQUE: Frontal, lateral and oblique views of the right hand. COMPARISON: No relevant prior studies available. FINDINGS: BONES/JOINTS: There is moderate hypertrophic change and osteophytes at the trapezium at the base of the thumb and moderate joint space narrowing and periarticular osteophytes. Advanced degenerative changes involving the second, third, fifth, and to a lesser extent the fourth DIP joints. Bone density appears mildly heterogeneous. Mild narrowing of the DIP joints. No acute fracture. No subluxation. Normal alignment. SOFT TISSUES: Soft tissue swelling at the DIP joints and to a lesser extent the PIP joints. No radiopaque foreign body. RAD/Hand Min 3 Views IMPRESSION: Multi-articular advanced degenerative changes, including the first carpal-metacarpal joint and multiple DIP joints. Electronically Signed: Charity Arenas MD at 2:28 EST ,
== END | disposition home or self-care (01) ==
LOC: MTRAD 16:42
PROVIDERS: PCP Family Medicine; Referring Provider Family Medicine; Visit Provider Family Medicine
DX: M79.644 Pain in right finger(s) (principal)
CPT/HCPCS: 73130

== ENCOUNTER → 2024-11-20 | Outpatient (CLI) | payer MEDICARE, OTHER, SELFPAY ==
--- NOTE | 2024-11-20 06:55 | BI_ITS ---
PROCEDURE: SCRN MAMM (CAD)W/EJ BILAT REASON FOR EXAM: F, Age 74 y/o , screening mammogram. No family history. TECHNIQUE: Bilateral screening digital breast tomosynthesis with 2D and 3D images. Computer aided detection. COMPARISON: Prior exam(s) dating back to October 06, 2023.. FINDINGS: The breasts are extremely dense which lowers the sensitivity of mammography. Stable examination. No suspicious masses, areas of developing architectural distortion, or suspicious calcifications. BI/SCRN MAMM (CAD)W/EJ BILAT IMPRESSION: BI-RADS 1: NEGATIVE. RECOMMEND ANNUAL MAMMOGRAPHIC SCREENING. Follow-up code: Routine Follow-up The patient will be notified of the results by letter. Reading Location: [place] [id number]
--- NOTE | 2024-11-20 06:58 | BD_ITS ---
PROCEDURE: DEXA BONE DENSITY STUDY REASON FOR EXAM: 74-year-old female. Osteoporosis screening. TECHNIQUE: DEXA scan of the lumbar spine and both hips. COMPARISON: 01/04/2022 FINDINGS: T-SCORES Lumbar spine: T-score -1.0. Bone mineral density 0.905 g per cm2. (Prior T- score -0.9. No significant interval change from the previous study.) Left hip: Left femoral neck T-score -2.2, total T-score -1.8. Bone mineral density 0.600 g per cm2. (Prior T-score -1.8. No significant interval change.) Right hip: Right femoral neck T-score -2.1, total T-score -1.6. Bone mineral density 0.612 g per cm2. prior T-score -1.7. (No significant change from the previous study.) FRAX* Results: 10 Year Probability of Fracture: Hip Fracture(1): 3.8% Major Osteoporotic Fracture(2): 14% *FRAX is a trademark of the [employer]'s [place] [employer] Metabolic Bone Disease, World Health Organization (WHO) Collaborating [place]. 1-The 10-year probability of fracture may be lower than reported if the patient has received treatment. 2-Major Osteoporotic Fracture: Clinical Spine, Forearm, Hip or Shoulder. The T-scores are also available for review on the [facility] PACS or by accessing the [facility] electronic medical record. BD/Dexa Bone Density Study IMPRESSION: Osteopenia. Reading Location: [facility]
== END | disposition home or self-care (01) ==
LOC: OPBD 07:03
PROVIDERS: PCP Family Medicine; Referring Provider Family Medicine; Visit Provider Family Medicine
DX: Z12.31 Encounter for screening mammogram for malignant neoplasm of breast (principal); M81.0 Age-related osteoporosis without current pathological fracture
CPT/HCPCS: 77063; 77067; 77080

== ENCOUNTER → 2025-04-30 | Outpatient (CLI) | payer MEDICARE, OTHER, SELFPAY ==
--- NOTE | 2025-04-30 09:51 | RAD_ITS ---
EXAM: XR Right Ankle Complete, 3 or More Views CLINICAL INDICATION: PAIN/ INJURY/ SWELLING TECHNIQUE: Frontal, lateral and oblique views of the right ankle. COMPARISON: No relevant prior studies available. FINDINGS: BONES/JOINTS: See below. SOFT TISSUES: Soft tissue swelling without acute fracture. RAD/Ankle min 3 Views IMPRESSION: 1. Soft tissue swelling without acute fracture. 2. If symptoms persist, further evaluation with CT is recommended. Reading Location: [facility] AT [facility]
== END | disposition home or self-care (01) ==
LOC: MTRAD 09:27
PROVIDERS: PCP Family Medicine
DX: M25.471 Effusion, right ankle (principal)
CPT/HCPCS: 73610

== ENCOUNTER 2025-06-13 14:30 | Outpatient (RCR) | payer MEDICARE, OTHER, SELFPAY ==
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
--- NOTE | 2025-06-13 15:15 | HP.PTDCSUM_ITS ---
Discharge Summary D/C summary: It has been my pleasure to treat OSBALDO VAIL referred by Dr. Darin Mclean MD, with the diagnosis of R peroneal tendonitis for a total of 14 visit(s). Discharge Date: 06/13/25 Please see the following information for a summary of their discharge status. Subjective Subjective: Hurts a little bit to go sideways with exercises. No funcitonal deficits. Doing side band walk with business trainer. Can't do planks Pain R lateral foot: Pain Intensity (Out of 10): 1 Overall Improvement % Improvement: 95 Objective Objective/Function: Walking normal Steps are normal adn no antalgia. Good ROM and feels some pulling with plank in r achilles trasniently, better without so much DF. Goals Goal 1:: Walk without pain household distances Goal Progress: Goal Met Goal 2:: pain 1/10 at worst adn 95% b hamlet Goal Progress: Goal Met Goal 3:: I appropriate HEP to limit future problems Goal Progress: Goal Met Goal 4:: return to walk without boot 4 miles per day without pain Goal Progress: 3 miles Plan Plan: d/c to HEP strength and stretching adn slow progreession. D/C Information Discharge Comments: To doctor next week and doing well. d/c sentence: If there are questions or concerns regarding this patient's physical therapy, please feel free to call me at [phone]. Thank you for the referral of this patient. Sincerely, Gurmeet Borden, DPT, OCS, CSCS Balance/Gait/Functional tests Balance/Special Test Scores Lower Extremity Functional Score: 71 Improvement % Improvement: 95
== END 2025-06-13 19:00 | disposition home or self-care (01) ==
LOC: PT 14:30
PROVIDERS: PCP Family Medicine; Referring Provider Family Medicine; Visit Provider Family Medicine
DX: M76.71 Peroneal tendinitis, right leg (principal)
CPT/HCPCS: 97035; 97110; 97140; 97161; 97530